=== PATIENT | female | born 1975 | race Caucasian/White ===

== ENCOUNTER 2016-04-05 13:42 | Emergency (ER) | payer OTHER ==
[2016-04-05] MEDS ORDERED: Lidocaine 1% 30 ML SDV INJECT ONE (13:54)
[2016-04-05] MEDS ORDERED: Sodium Chloride 0.9% 10 ML Syringe FLUSH PRN (13:56)
[2016-04-05] MEDS ORDERED: Diphtheria/Tetanus Toxoids,Adult (Td) 0.5 ML Syringe IM ONE (13:57)
[2016-04-05] MEDS ORDERED: Diphtheria,Pertussis(Acell),Tetanus Vaccine 0.5 ML Syringe IM ONE (14:06)
[2016-04-05] MEDS ORDERED: ceFAZolin 1 GM Vial IVPUSH ONE (14:07)
[2016-04-05 14:49] VITALS: BP 146/94
--- NOTE | 2016-04-07 12:38 | ER ---
Date of Service: 04/05/2016 SUBJECTIVE: Lara presents to the emergency room with complaints of avulsion to the left index finger. The patient was using an industrial press to bend sheet metal when she caught her finger between the piece of sheet metal and the base of the press. She sustained an avulsion and loss of tissue to her left index finger, measuring approximately 3 cm in length x 1 cm in width, involving the lateral aspect in the pad of the finger and also sustained a small laceration to the dorsum of the index finger. She states that her tetanus is likely not up to date. She states that she has normal range of motion to the finger. PAST MEDICAL HISTORY: 1. Alcoholism. 2. Hypertension. 3. Dyslipidemia. MEDICATIONS: None. ALLERGIES: To codeine, morphine, sulfamethoxazole, and trimethoprim. REVIEW OF SYSTEMS: Denies any numbness or tingling in the distal portion of the extremity. Denies any injury other than that was isolated to the right index finger. PHYSICAL EXAMINATION: General: This is a 40-year-old female patient, who is in no acute distress. Vital Signs: Blood pressure is 146/94, pulse rate is 101, temperature is 36.2, respiratory rate is 20. Skin: Warm, pink, and dry. Musculoskeletal: The patient has an avulsion with tissue loss to her right index finger, measuring approximately 3 cm in length x 1 cm in width. There is a large open area with surrounding redundant tissue. No evidence of involvement of the flexor extensor tendon. The patient has normal range of motion to the finger, albeit with increased discomfort. Neurovascular, circulation, sensation, motor function are all within normal limits in the distal portion of the extremity. EMERGENCY ROOM COURSE: The finger was irrigated with approximately 500 mL of normal saline mixed with chlorhexidine. The patient's hand was prepped and draped in the usual sterile fashion. A total of 2 mattress sutures were used to close the deepest portions of the laceration at the most proximal portion of the finger and a total of 3 interrupted 4-0 nylon sutures were used to close the remainder of the laceration and a total of 2 sutures was used to close the laceration to the dorsum of the finger. Again, there was a significant amount of missing tissue. The area was thoroughly debrided and redundant tissue and irrigated during the suturing procedure. A digital block using 1% lidocaine was placed at the base of the finger prior to repair. The patient tolerated the procedure well. She remained stable in my care in the emergency room. ASSESSMENT: A 3 x 1 cm complex avulsion/laceration to the lateral aspect of the right index finger and 1.5 cm laceration to the dorsum of the right index finger. PLAN: To note, I did speak with Dr. Murphy from [facility] regarding this injury prior to closure. He advised that this is how he would repair the injury and stated that a large amount of the injury would have to heal via secondary intention. IV was started. The patient's tetanus was updated. She was given 2 g of Ancef IV as well. Wet dressing was applied to the finger. We will have her follow up on in the ER for dressing change. All questions were answered. MWK: 04/07/2016 07:14:38 MODL: 04/07/2016 12:26:28 /[id number]
== END 2016-04-05 15:40 | disposition home or self-care (01) ==
LOC: VM.ED 13:42
DX: S61.310A Laceration without foreign body of right index finger with damage to nail, initial encounter (principal); I10 Essential (primary) hypertension; E78.5 Hyperlipidemia, unspecified; Z88.5 Allergy status to narcotic agent; Z88.2 Allergy status to sulfonamides; W23.0XXA Caught, crushed, jammed, or pinched between moving objects, initial encounter
CPT/HCPCS: 12001; 12042; 73140; 90715; 96374; 99283; J0690

== ENCOUNTER 2017-05-25 14:30 | Emergency (ER) | payer SELFPAY ==
[2017-05-25 15:18] VITALS: BP 155/94
[2017-05-25 17:19] LABS: CHLORIDE,CL 103 mmol/L (98-107); SODIUM,NA 137 mmol/L (136-145)
[2017-05-25] MEDS ORDERED: Take Home: Amoxicillin/Clavulanate K 875-125 MG Tab, 2 Tab Pack PO ONE (17:38)
--- NOTE | 2017-05-25 18:52 | EDM.PDOC ---
ED HPI GENERAL MEDICAL PROBLEM - General Chief Complaint: ENT Problem Stated Complaint: TOOTH Time Seen by Provider: 05/25/17 15:17 Source of Information: Reports: Patient History Limitations: Reports: No Limitations - History of Present Illness INITIAL COMMENTS - FREE TEXT/NARRATIVE: PtAdria presented to ER with numerous complaints. Her initial complaint was that of R sided facial swelling. She states that she has a dental abscess that has been present for several weeks. She also complains of abdominal bloating, decreased appetite, hemetemesis, hematochezia and possibly melena that started 2-3 weeks ago as well. She is concerned because she feels her abdomen has gotten larger. She is able to hold down foods, and is passing gas. She states that she had a loose stool earlier today. States that she has been chilled but is not checking her temp. States that she also feels lightheaded and fatigued. States that she doesn't feel much like eating. Denies any history of scleral icterus or jaundice. She has a history of severe alcoholism. She previously had been a patient of mine in the clinic several years ago, at which time she had stopped drinking, but has started again. Location: Reports: Face, Abdomen, Generalized Quality: Reports: Ache Severity: Moderate Improves with: Reports: Rest Worsens with: Reports: Movement Right Face Pain Score (Numeric/FACES): 9 - Related Data Allergies Allergy/AdvReac Type Severity Reaction Status Date / Time codeine Allergy Other Verified 05/25/17 15:16 morphine Allergy Cannot Verified 05/25/17 15:16 Remember sulfamethoxazole Allergy Cannot Verified 05/25/17 15:16 [From Bactrim] Remember trimethoprim [From Bactrim] Allergy Cannot Verified 05/25/17 15:16 Remember Home Meds: Home Meds . [No Known Home Meds] 04/05/16 [History] Past Medical History Cardiovascular History: Reports: Hypertension - Past Surgical History Female Surgical History: Reports: Hysterectomy, Tubal Ligation Musculoskeletal Surgical History: Reports: Carpal Tunnel Social & Family History - Tobacco Use Smoking Status *Q: Current Every Day Smoker Years of Tobacco use: 30 Packs/Tins Daily: 1.5 - Caffeine Use Caffeine Use: Reports: None - Alcohol Use Days Per Week of Alcohol Use: 4 Number of Drinks Per Day: 4 Total Drinks Per Week: 16 - Recreational Drug Use Recreational Drug Use: No Drug Use in Last 12 Months: No ED ROS GENERAL - Review of Systems Review Of Systems: See Below Constitutional: Reports: Chills, Fatigue, Decreased Appetite, Weight Gain. Denies: Diaphoresis HEENT: Reports: Dental Pain (R sided dental pain and facial swelling) Respiratory: Reports: No Symptoms Cardiovascular: Reports: No Symptoms Endocrine: Reports: Fatigue GI/Abdominal: Reports: Abdominal Pain, Anorexia, Black Stool, Diarrhea, Decreased Appetite, Distension, Flatus, Hematemesis, Melena, Vomiting : Reports: No Symptoms Musculoskeletal: Reports: No Symptoms Skin: Reports: No Symptoms. Denies: Cyanosis, Jaundice, Bruising, Change in Color Neurological: Reports: No Symptoms Psychiatric: Reports: No Symptoms Hematologic/Lymphatic: Reports: No Symptoms Immunologic: Reports: No Symptoms ED EXAM, GENERAL - Physical Exam Exam: See Below Exam Limited By: No Limitations General Appearance: Alert, WD/WN, No Apparent Distress Eye Exam: Bilateral Eye: EOMI, Normal Fundi, Normal Inspection, PERRL Ears: Normal External Exam, Normal Canal, Hearing Grossly Normal, Normal TMs Ear Exam: Bilateral Ear: Auricle Normal, Canal Normal, TM normal Nose: Normal Inspection, Normal Mucosa, No Blood Throat/Mouth: Normal Inspection, Normal Lips, Normal Teeth, Normal Gums, Normal Oropharynx, Normal Voice, No Airway Compromise Head: Atraumatic, Normocephalic Neck: Normal Inspection, Supple, Non-Tender, Full Range of Motion Respiratory/Chest: No Respiratory Distress, No Accessory Muscle Use, Chest Non- Tender, Decreased Breath Sounds Cardiovascular: Normal Peripheral Pulses, Regular Rate, Rhythm, No Edema, No Gallop, No JVD, No Murmur, No Rub Peripheral Pulses: 4+: Radial (L), Radial (R) GI/Abdominal: Normal Bowel Sounds, Soft, Non-Tender, No Organomegaly, No Abnormal Bruit, No Mass, Pelvis Stable, Other (abdomen obese, no splenomegaly. BS are normoactive.). No: Hepatomegaly, Splenomegaly (Female) Exam: Deferred Rectal (Female) Exam: Deferred Back Exam: Normal Inspection, Full Range of Motion, NT Extremities: Normal Inspection, Normal Range of Motion, Non-Tender, Normal Capillary Refill, No Pedal Edema Neurological: Alert, Oriented, CN II-XII Intact, Normal Cognition, Normal Gait, Normal Reflexes, No Motor/Sensory Deficits Psychiatric: Normal Affect, Normal Mood Skin Exam: Warm, Dry, Intact, Normal Color, No Rash Lymphatic: No Adenopathy Course - Vital Signs Last Recorded V/S: Last Vital Signs Temp 37.3 C 05/25/17 15:17 Pulse 87 05/25/17 15:17 Resp 14 05/25/17 15:17 BP 155/94 H 05/25/17 15:17 Pulse Ox 97 05/25/17 15:17 - Orders/Labs/Meds Orders: Active Orders 24 hr Category Date Time Status Abdomen Series w Chest 1V [CR] Stat Exams 05/25/17 16:27 Taken Labs: Laboratory Tests 05/25/17 05/25/17 05/25/17 Range/Units 16:50 16:53 16:53 WBC 8.6 (4.0-10.0) x10^3/uL RBC 4.44 (4.00-5.50) x10^6/uL Hgb 14.5 (12.0-16.0) g/dL Hct 41.1 (33.0-47.0) % MCV 92.6 D (78.0-93.0) fL MCH 32.7 H (26.0-32.0) pg MCHC 35.3 (32.0-36.0) g/dL RDW Coeff of Jose Cruz 12.5 (10.0-15.0) % Plt Count 206 D (130-400) x10^3/uL Neut % (Auto) 67.7 (50.0-80.0) % Lymph % (Auto) 21.0 L (25.0-50.0) % Gooding % (Auto) 9.0 (2.0-11.0) % Eos % (Auto) 2.0 (0.0-4.0) % Baso % (Auto) 0.3 (0.2-1.2) % PT 9.8 (9.8-11.8) SEC INR 0.9 L (2.0-3.5) Sodium (136-145) mmol/L Potassium (3.5-5.1) mmol/L Chloride (98-107) mmol/L Carbon Dioxide (21-32) mmol/L Anion Gap (10-20) mmol/L BUN (7-18) mg/dL Creatinine (0.55-1.02) mg/dL Est Cr Clr Drug Dosing mL/min Estimated GFR (MDRD) Glucose (74-106) mg/dL Calcium (8.5-10.1) mg/dL Corrected Calcium (8.5-10.1) mg/dL Total Bilirubin (0.2-1.0) mg/dL AST (15-37) U/L ALT (14-59) U/L Alkaline Phosphatase (46-116) U/L C-Reactive Protein (<=0.9) mg/dL Total Protein (6.4-8.2) g/dL Albumin (3.4-5.0) g/dL Globulin Albumin/Globulin Ratio Amylase (25-115) U/L Urine Color Yellow (YELLOW) Urine Appearance Slightly cloudy H (CLEAR) Urine pH 5.5 (5.0-8.0) Ur Specific [place] 1.020 Urine Protein Negative (NEGATIVE) mg/dL Urine Glucose (UA) Negative (NEGATIVE) mg/dL Urine Ketones Negative (NEGATIVE) mg/dL Urine Occult Blood Small H (NEGATIVE) Urine Nitrite Negative (NEGATIVE) Urine Bilirubin Negative (NEGATIVE) Urine Urobilinogen 0.2 (0.2) EU/dL Ur Leukocyte Esterase Negative (NEGATIVE) Urine RBC 0-5 (NOT SEEN) /HPF Urine WBC 0-5 (NOT SEEN) /HPF Ur Squamous Epith Cells Moderate H (NEGATIVE) /HPF Amorphous Sediment Few Urine Bacteria Few H (NEGATIVE) /HPF Granular Casts Occasional H (NEGATIVE) /HPF Urine Mucus Moderate H (NEGATIVE) /LPF 05/25/17 Range/Units 16:53 WBC (4.0-10.0) x10^3/uL RBC (4.00-5.50) x10^6/uL Hgb (12.0-16.0) g/dL Hct (33.0-47.0) % MCV (78.0-93.0) fL MCH (26.0-32.0) pg MCHC (32.0-36.0) g/dL RDW Coeff of Jose Cruz (10.0-15.0) % Plt Count (130-400) x10^3/uL Neut % (Auto) (50.0-80.0) % Lymph % (Auto) (25.0-50.0) % Gooding % (Auto) (2.0-11.0) % Eos % (Auto) (0.0-4.0) % Baso % (Auto) (0.2-1.2) % PT (9.8-11.8) SEC INR (2.0-3.5) Sodium 137 (136-145) mmol/L Potassium 3.4 L (3.5-5.1) mmol/L Chloride 103 (98-107) mmol/L Carbon Dioxide 24 (21-32) mmol/L Anion Gap 13.4 (10-20) mmol/L BUN 9 (7-18) mg/dL Creatinine 0.6 (0.55-1.02) mg/dL Est Cr Clr Drug Dosing 107.63 mL/min Estimated GFR (MDRD) > 60 Glucose 93 (74-106) mg/dL Calcium 9.2 (8.5-10.1) mg/dL Corrected Calcium 9.28 (8.5-10.1) mg/dL Total Bilirubin 0.3 (0.2-1.0) mg/dL AST 14 L (15-37) U/L ALT 24 (14-59) U/L Alkaline Phosphatase 80 (46-116) U/L C-Reactive Protein 4.0 H (<=0.9) mg/dL Total Protein 7.8 (6.4-8.2) g/dL Albumin 3.9 (3.4-5.0) g/dL Globulin 3.9 Albumin/Globulin Ratio 1.00 Amylase 33 (25-115) U/L Urine Color (YELLOW) Urine Appearance (CLEAR) Urine pH (5.0-8.0) Ur Specific [place] Urine Protein (NEGATIVE) mg/dL Urine Glucose (UA) (NEGATIVE) mg/dL Urine Ketones (NEGATIVE) mg/dL Urine Occult Blood (NEGATIVE) Urine Nitrite (NEGATIVE) Urine Bilirubin (NEGATIVE) Urine Urobilinogen (0.2) EU/dL Ur Leukocyte Esterase (NEGATIVE) Urine RBC (NOT SEEN) /HPF Urine WBC (NOT SEEN) /HPF Ur Squamous Epith Cells (NEGATIVE) /HPF Amorphous Sediment Urine Bacteria (NEGATIVE) /HPF Granular Casts (NEGATIVE) /HPF Urine Mucus (NEGATIVE) /LPF Meds: Medications Discontinued Medications Generic Name Dose Route Start Last Admin Trade Name Freq PRN Reason Stop Dose Admin Amoxicillin/Clavulanate Potassium 1 packet 05/25/17 17:38 05/25/17 17:46 Take Home: Amox/Clavulanate 875-12, 2 Tab Pac PO 05/25/17 17:39 1 packet ONETIME ONE Administration Departure - Departure Time of Disposition: 17:50 Disposition: Home, Self-Care 01 Clinical Impression: Dental caries, Dental abscess - Discharge Information Instructions: Dental Abscess, [id number], Acute Bronchitis, Adult, Easy-to- Read Referrals: Brenda Murray [employer]AD [Primary Care Provider] - Forms: ED Department Discharge Additional Instructions: Home to rest. Augmentin 875mg twice daily for 10 days. Establish care and follow-up in clinic in 10-14 days, sooner if not gradually improving. Contact [facility] to set up appt. with dentist. Also, [facility] in [place] may be able to help as well. - My Orders Last 24 Hours: My Active Orders 05/25/17 16:27 Abdomen Series w Chest 1V [CR] Stat - Assessment/Plan Last 24 Hours: My Active Orders 05/25/17 16:27 Abdomen Series w Chest 1V [CR] Stat Assessment:: dental abscess History of GI bleeding, acute on chronic. Weight gain Relapse of alcoholism, contributing to #2 and #3
== END 2017-05-25 17:50 | disposition home or self-care (01) ==
LOC: VM.ED 14:30
DX: K04.7 Periapical abscess without sinus (principal); K02.9 Dental caries, unspecified; I10 Essential (primary) hypertension; F17.210 Nicotine dependence, cigarettes, uncomplicated; Z88.5 Allergy status to narcotic agent; Z88.2 Allergy status to sulfonamides; Z88.1 Allergy status to other antibiotic agents
CPT/HCPCS: 36415; 74022; 80053; 81001; 82150; 85025; 85610; 86140; 99284; A9270

== ENCOUNTER 2017-06-23 06:29 | Emergency (ER) | payer SELFPAY ==
[2017-06-23 06:32] VITALS: BP 168/92
[2017-06-23] MEDS ORDERED: Amoxicillin 875 MG Tab PO ONE (07:23)
--- NOTE | 2017-06-23 07:32 | EDM.PDOC ---
ED HPI GENERAL MEDICAL PROBLEM - General Chief Complaint: ENT Problem Stated Complaint: SORE THROAT Time Seen by Provider: 06/23/17 06:50 Source of Information: Reports: Patient History Limitations: Reports: No Limitations - History of Present Illness INITIAL COMMENTS - FREE TEXT/NARRATIVE: Sore throat, fever, and difficulty swallowing for 5 days. Also has been experiencing cough. No N/V/D. Onset Date: 06/22/17 Throat Pain Score (Numeric/FACES): 9 - Related Data Allergies Allergy/AdvReac Type Severity Reaction Status Date / Time codeine Allergy Other Verified 06/23/17 06:30 morphine Allergy Cannot Verified 06/23/17 06:30 Remember sulfamethoxazole Allergy Cannot Verified 06/23/17 06:30 [From Bactrim] Remember trimethoprim [From Bactrim] Allergy Cannot Verified 06/23/17 06:30 Remember Home Meds: Home Meds . [No Known Home Meds] 04/05/16 [History] Past Medical History Cardiovascular History: Reports: Hypertension - Past Surgical History Female Surgical History: Reports: Hysterectomy, Tubal Ligation Musculoskeletal Surgical History: Reports: Carpal Tunnel Social & Family History - Tobacco Use Smoking Status *Q: Current Every Day Smoker Years of Tobacco use: 30 Packs/Tins Daily: 1 - Caffeine Use Caffeine Use: Reports: None ED ROS GENERAL - Review of Systems Review Of Systems: See Below Constitutional: Reports: No Symptoms HEENT: Reports: Throat Pain, Throat Swelling Respiratory: Reports: No Symptoms Cardiovascular: Reports: No Symptoms Endocrine: Reports: No Symptoms GI/Abdominal: Reports: No Symptoms Musculoskeletal: Reports: No Symptoms Skin: Reports: No Symptoms Neurological: Reports: No Symptoms Psychiatric: Reports: No Symptoms ED EXAM, GENERAL - Physical Exam Exam: See Below Exam Limited By: No Limitations General Appearance: Alert, WD/WN, No Apparent Distress Ears: Normal External Exam, Normal Canal, Hearing Grossly Normal, Normal TMs Nose: Normal Inspection, Normal Mucosa, No Blood Throat/Mouth: Normal Lips, Normal Teeth, Normal Gums, No Airway Compromise, Inflammation Head: Atraumatic, Normocephalic Neck: Normal Inspection, Supple, Non-Tender, Full Range of Motion Respiratory/Chest: No Respiratory Distress, Lungs Clear, Normal Breath Sounds, No Accessory Muscle Use, Chest Non-Tender Cardiovascular: Normal Peripheral Pulses, Regular Rate, Rhythm, No Edema, No Gallop, No JVD, No Murmur, No Rub Course - Vital Signs Last Recorded V/S: Last Vital Signs Temp 35.9 C 06/23/17 06:30 Pulse 107 H 06/23/17 06:30 Resp 18 06/23/17 06:30 BP 168/92 H 06/23/17 06:30 Pulse Ox 98 06/23/17 06:30 - Orders/Labs/Meds Meds: Medications Discontinued Medications Generic Name Dose Route Start Last Admin Trade Name Susan PRN Reason Stop Dose Admin Amoxicillin 875 mg 06/23/17 07:23 Amoxil PO 06/23/17 07:24 ONETIME ONE Departure - Departure Time of Disposition: 07:30 Disposition: Home, Self-Care 01 Condition: Good Clinical Impression: Strep throat - Discharge Information Instructions: Strep Throat Referrals: PCP,Unobkarma [Primary Care Provider] - Forms: ED Department Discharge Additional Instructions: amoxicillin 875mg twice daily for 10 days Off work until 24 hours after your last fever. Drink plenty of fluids. Tylenol and ibuprofen for discomfort.
== END 2017-06-23 07:35 | disposition home or self-care (01) ==
LOC: VM.ED 06:29
DX: J02.0 Streptococcal pharyngitis (principal); I10 Essential (primary) hypertension; F17.210 Nicotine dependence, cigarettes, uncomplicated; Z88.5 Allergy status to narcotic agent; Z88.2 Allergy status to sulfonamides; Z88.1 Allergy status to other antibiotic agents
CPT/HCPCS: 87880; 99283; A9270

== ENCOUNTER 2020-07-13 09:24 | Day surgery (SDC) | payer MEDICAID ==
[2020-07-13] MEDS: Lactated Ringers 1,000 ML IV SCH (09:41)
[2020-07-13] MEDS ORDERED: fentaNYL 100 MCG/2 ML SDV ONE (10:31)
[2020-07-13] MEDS ORDERED: Propofol 200 MG/20 ML SDV ONE ×2 (10:31→10:42)
[2020-07-13 11:05] VITALS: BP 160/90; PULSE 70
--- NOTE | 2020-07-13 14:40 | OR ---
PREOPERATIVE DIAGNOSIS: History of nausea, vomiting, and abdominal pain. POSTOPERATIVE DIAGNOSIS: History of nausea, vomiting, and abdominal pain. PROCEDURE PERFORMED: Esophagogastroduodenoscopy with antral biopsy for Helicobacter pylori. COMPLICATIONS: None. SPECIMENS: Biopsies taken for H. pylori. ESTIMATED BLOOD LOSS: 5 mL. PROCEDURE IN DETAIL: This was done in the endoscopy suite. Sedation was given per Anesthesia. Endoscope was inserted into the pharynx, across the esophagus into the stomach, through the pylorus into the first and second portion of duodenum. First and second portion of the duodenum were normal. Scope was slowly withdrawn. There was a fair amount of gastritis present within the body of the stomach. Several biopsies were taken for H pylori. The scope was retroflexed. No hiatal hernia present. The remainder of the exam was normal. FINAL DIAGNOSIS: Gastritis, biopsies pending for Helicobacter pylori. BKD: 07/13/2020 12:26:16 MODL: 07/13/2020 13:36:03 /[id number]
== END 2020-07-13 11:50 | disposition home or self-care (01) ==
LOC: VM.SDS 09:24
PROVIDERS: ATTEND Surgery
DX: K29.70 Gastritis, unspecified, without bleeding (principal); E78.5 Hyperlipidemia, unspecified; I10 Essential (primary) hypertension; F17.210 Nicotine dependence, cigarettes, uncomplicated; K21.00 Gastro-esophageal reflux disease with esophagitis, without bleeding; Z88.8 Allergy status to other drugs, medicaments and biological substances; Z88.5 Allergy status to narcotic agent; Z88.1 Allergy status to other antibiotic agents; Z79.899 Other long term (current) drug therapy
CPT/HCPCS: 00731; J2704; J3010; J7120

== ENCOUNTER 2020-08-10 08:21 | Emergency (ER) | payer MEDICAID ==
[2020-08-10 08:34] VITALS: PULSE 96
[2020-08-10] MEDS ORDERED: Ketorolac 30 MG/ML SDV IM ONE (08:49)
[2020-08-10] MEDS ORDERED: Take Home: Acetaminophen/HYDROcodone 325-5 MG, 5 Tab Pack PO ONE (08:51)
[2020-08-10] MEDS ORDERED: Take Home: Cyclobenzaprine 10 MG Tab, 4 Tab Pack PO ONE (08:51)
--- NOTE | 2020-08-10 08:58 | EDM.PDOC ---
ED HPI GENERAL MEDICAL PROBLEM - General Chief Complaint: Neck Problem Stated Complaint: RT SIDE NECK PAIN AND STIFF Time Seen by Provider: 08/10/20 08:45 Source of Information: Reports: Patient History Limitations: Reports: No Limitations - History of Present Illness INITIAL COMMENTS - FREE TEXT/NARRATIVE: Patient was putting her hair into a ponytail this morning and had sudden onset of right neck pain. She denies any injury. Does have some chronic problems with left arm carpal tunnel issues, but no chronic neck pain. no recent trauma or neck manipulation. no numbness or tingling to the right arm. no weakness. Did not try anything prior to arrival Onset: Today, Sudden Location: Reports: Neck Quality: Reports: Sharp Severity: Moderate Improves with: Reports: None Worsens with: Reports: Movement Associated Symptoms: Reports: No Other Symptoms Right Neck Pain Score (Numeric/FACES): 10 - Related Data Allergies Allergy/AdvReac Type Severity Reaction Status Date / Time codeine Allergy Itching Verified 08/10/20 08:36 morphine Allergy Itching Verified 08/10/20 08:36 sulfamethoxazole Allergy Itching Verified 08/10/20 08:36 [From Bactrim] trimethoprim [From Bactrim] Allergy Itching Verified 08/10/20 08:36 varenicline [From Chantix] Allergy Other Verified 08/10/20 08:36 Home Meds: Home Meds Albuterol Sulfate [Albuterol Sulfate HFA] 2 puff INH Q4H PRN 06/29/20 [History] Cyclobenzaprine [Flexeril] 10 mg PO TID PRN 06/29/20 [History] Pantoprazole Sodium [Protonix] 40 mg PO DAILY 06/29/20 [History] Promethazine [Phenergan] 25 mg PO QID PRN 06/29/20 [History] Sucralfate [Carafate] 1 gm PO QID PRN 06/29/20 [History] ondansetron HCL [Zofran] 4 mg PO Q8H PRN 06/29/20 [History] lisinopriL [Lisinopril] 20 mg PO DAILY 07/13/20 [History] Hydrocodone/Acetaminophen [Hydrocodone-Acetamin 5-325 mg] 1 each PO Q6HR #10 tablet 08/10/20 [Rx] diazePAM [Valium] 5 mg PO TID PRN #12 tablet 08/10/20 [Rx] Past Medical History Cardiovascular History: Reports: High Cholesterol, Hypertension Gastrointestinal History: Reports: GERD, Other (See Below) Other Gastrointestinal History: esophagitis 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: Reports: Endometriosis Psychiatric History: Reports: Depression Endocrine/Metabolic History: Reports: Other (See Below) Other Endocrine/Metabolic History: IFG - Past Surgical History Female Surgical History: Reports: Hysterectomy, Tubal Ligation Musculoskeletal Surgical History: Reports: Carpal Tunnel Social & Family History - Caffeine Use Caffeine Use: Reports: None ED ROS GENERAL - Review of Systems Review Of Systems: See Below Constitutional: Reports: No Symptoms HEENT: Reports: No Symptoms Respiratory: Reports: No Symptoms Cardiovascular: Reports: No Symptoms Endocrine: Reports: No Symptoms GI/Abdominal: Reports: No Symptoms : Reports: No Symptoms Musculoskeletal: Reports: Neck Pain Skin: Reports: No Symptoms Neurological: Reports: No Symptoms Psychiatric: Reports: No Symptoms Hematologic/Lymphatic: Reports: No Symptoms ED EXAM, UPPER BACK/NECK PAIN - Physical Exam Exam: See Below Exam Limited By: No Limitations General Appearance: Alert, Moderate Distress Eye Exam: Bilateral Eye: EOMI, Normal Inspection, PERRL Ears Exam: Normal External Exam, Normal Canal Nose Exam: Normal Inspection, Normal Mucousa Throat/Mouth Exam: Normal Inspection, Normal Lips, Normal Voice Head Exam: Atraumatic Neck Exam: Limited Range of Motion, Muscle Spasm, Paraspinous Muscle Tender (right side significant spasm), Stiff Neck. No: Spinous Processes Tender, Tender Midline (trapezius spasm from origin to insertion. no vertebral tenderness, limited motion, especially to right, trachea midline, no JVD) Cardiovascular/Respiratory: Tachycardia Extremities: Other (normal strength and rom of the upper extremities) Course - Vital Signs Last Recorded V/S: Last Vital Signs Temp 36.7 C 08/10/20 08:28 Pulse 96 08/10/20 08:28 Resp 20 08/10/20 08:28 BP 219/134 H 08/10/20 08:28 Pulse Ox 100 08/10/20 08:28 - Orders/Labs/Meds Meds: Medications Discontinued Medications Generic Name Dose Route Start Last Admin Trade Name Freq PRN Reason Stop Dose Admin Hydrocodone Bitart/Acetaminophen 1 packet 08/10/20 08:51 08/10/20 09:02 Take Home: Acetaminophen/Hydrocodone 325-5 Mg, 5 Tab Pack PO 08/10/20 08:52 1 packet ONETIME ONE Administration Cyclobenzaprine HCl 1 packet 08/10/20 08:51 08/10/20 09:02 Take Home: Cyclobenzaprine 10 Mg Tab, 4 Tab Pack PO 08/10/20 08:52 1 packet ONETIME ONE Administration Diazepam 5 mg 08/10/20 08:49 08/10/20 08:59 Diazepam 10 Mg/2 Ml Syringe IM 08/10/20 08:50 5 mg ONETIME ONE Administration Ketorolac Tromethamine 30 mg 08/10/20 08:49 08/10/20 08:59 Ketorolac 30 Mg/Ml Sdv IM 08/10/20 08:50 30 mg ONETIME ONE Administration - Re-Assessments/Exams Free Text/Narrative Re-Assessment/Exam: 08/10/20 09:26 By exam, patient has torticollis. Will give toradol and valium here. SEnd with cyclobeneprine and hydrocodone to go packs. scripts for pain medication and valium and off work x two days. follow up pcp. heat, stretching massage. Departure - Departure Time of Disposition: 08:51 Disposition: Home, Self-Care 01 Condition: Fair Clinical Impression: Torticollis, acquired - Discharge Information *PRESCRIPTION DRUG MONITORING PROGRAM REVIEWED*: Not Applicable *COPY OF PRESCRIPTION DRUG MONITORING REPORT IN PATIENT JAMEEL: Not Applicable Prescriptions: Hydrocodone/Acetaminophen [Hydrocodone-Acetamin 5-325 mg] 1 each PO Q6HR #10 tablet diazePAM [Valium] 5 mg PO TID PRN #12 tablet PRN Reason: Muscle Spasm - Painful Instructions: Acute Torticollis, Adult Forms: ED Department Discharge, ED Return to Work/School Form Additional Instructions: Heat, stretching massage and motion are important. TAke motrin 600 mg every 6 hours for several days with food. You are given cyclobenzaprine, as a muscle relaxant, take one every 8 hours as needed for spasm. Fill the valium tomorrow when the pharmacy is open and use this in place of the cyclobenzaprine. You are given hydrocodone as pain medication, take one every 6 hours as needed for pain not controlled by motrin. fill rest of prescription as needed. You are given a note for off work for 2 days. Follow up with physical therapy and your physician as needed. Sepsis Event Note (ED) - Evaluation Sepsis Screening Result: No Definite Risk - Focused Exam Vital Signs: Vital Signs Temp Pulse Resp BP Pulse Ox 08/10/20 08:28 36.7 C 96 20 219/134 H 100
[2020-08-10 09:52] VITALS: BP 171/111
== END 2020-08-10 09:20 | disposition home or self-care (01) ==
LOC: VM.ED 08:21
DX: M43.6 Torticollis (principal); E78.00 Pure hypercholesterolemia, unspecified; I10 Essential (primary) hypertension; K21.9 Gastro-esophageal reflux disease without esophagitis; Z88.1 Allergy status to other antibiotic agents; Z88.8 Allergy status to other drugs, medicaments and biological substances; Z88.5 Allergy status to narcotic agent; Z88.6 Allergy status to analgesic agent
CPT/HCPCS: 96372; 99283; A9270-GY; J1885; J3360

== ENCOUNTER 2021-05-29 08:02 | Emergency (ER) | payer MEDICAID ==
[2021-05-29] MEDS ORDERED: Ketorolac 30 MG/ML SDV IM ONE (08:42)
[2021-05-29] MEDS ORDERED: Cyclobenzaprine 10 MG Tab PO ONE (08:42)
[2021-05-29] MEDS ORDERED: Diazepam 5 MG Tab PO ONE (09:49)
[2021-05-29] MEDS ORDERED: fentaNYL 50 MCG/ML SDV IM ONE (09:49)
[2021-05-29 10:29] LABS: CHLORIDE,CL 104 mmol/L (98-107); SODIUM,NA 138 mmol/L (136-145)
[2021-05-29 10:30] LABS: ANION GAP 12.4 mmol/L (5-15)
[2021-05-29 10:31] VITALS: BP 146/84; PULSE 61
== END 2021-05-29 11:35 | disposition home or self-care (01) ==
LOC: VM.ED 08:02
DX: R07.89 Other chest pain (principal); E78.00 Pure hypercholesterolemia, unspecified; I10 Essential (primary) hypertension; K21.9 Gastro-esophageal reflux disease without esophagitis; Z88.5 Allergy status to narcotic agent; Z88.8 Allergy status to other drugs, medicaments and biological substances; Z79.899 Other long term (current) drug therapy
CPT/HCPCS: 36415; 80053; 83690; 83735; 84484; 85025; 85379; 93010; 96372; 99284; A9270-GY; J1885; J3010

== ENCOUNTER 2023-06-29 21:46 | Observation (INO) | payer SELFPAY ==
[2023-06-29] MEDS: HYDROmorphone 1 MG/ML Syringe IVPUSH ONE (22:09)
[2023-06-29 22:10] LABS: BASOPHILS PERCENT AUTO 0.2 % (0.2-1.2); EOSINOPHILS PERCENT AUTO 0.2 % (0.0-4.0); HEMATOCRIT 40.1 % (33.0-47.0); HEMOGLOBIN 14.5 g/dL (12.0-16.0); IMMATURE GRAN ABSOLUTE AUTO 0.02 x10^3/uL (0.00-0.07); MEAN CORPUSCULAR HEMOGLOBIN 31.8 pg (26.0-32.0); MEAN CORPUSCULAR HGB CONC 36.2 g/dL (32.0-36.0); MEAN CORPUSCULAR VOLUME 87.9 fL (78.0-93.0); MONOCYTES ABSOLUTE AUTO 0.3 x10^3/uL (0.0-0.8); MONOCYTES PERCENT AUTO 2.5 % (2.0-11.0); NEUTROPHILS ABSOLUTE AUTO 10.2 x10^3/uL (1.8-7.7); NEUTROPHILS PERCENT AUTO 80.9 % (50.0-80.0); PLATELET COUNT,PLT 246 x10^3/uL (130-400); RED BLOOD CELL COUNT 4.56 x10^6/uL (4.00-5.50); WHITE BLOOD CELL COUNT,WBC 12.6 x10^3/uL (4.0-10.0)
[2023-06-29] MEDS: Ondansetron 4 MG/2 ML SDV IVPUSH PRN (22:10)
[2023-06-29 22:22] LABS: CALCIUM 9.3 mg/dL (8.5-10.1); CREATININE 0.7 mg/dL (0.55-1.02); EST CRCL DRUG DOSING (CG) 85.79 mL/min
[2023-06-29 22:29] LABS: POTASSIUM,K 3.8 mmol/L (3.5-5.1)
[2023-06-29 22:30] LABS: ANION GAP 19.8 mmol/L (5-15)
[2023-06-29] MEDS: Haloperidol Lactate 5 MG/ML SDV IV ONE (23:11)
[2023-06-29] MEDS: diphenhydrAMINE 50 MG/ML SDV IVPUSH ONE (23:11)
[2023-06-29] MEDS: Acetaminophen 500 MG Tab PO ONE (23:12)
[2023-06-29] MEDS: Lidocaine 4% 1 each Patch TOP ONE (23:12)
[2023-06-29] MEDS: Iopamidol 612 MG/ML 100 ML Bottle IVPUSH ONE (23:28)
[2023-06-30] MEDS ORDERED: Acetaminophen 500 MG Tab PO PRN (00:27)
[2023-06-30] MEDS ORDERED: diphenhydrAMINE 50 MG/ML SDV IVPUSH PRN (00:34)
[2023-06-30] MEDS ORDERED: Haloperidol Lactate 5 MG/ML SDV IV PRN (00:34)
[2023-06-30] MEDS ORDERED: LORazepam 0.5 MG Tab PO PRN (01:40)
[2023-06-30] MEDS: Ketorolac 15 MG/ML SDV IVPUSH SCH (01:58)
[2023-06-30 06:51] LABS: BASOPHILS PERCENT AUTO 0.2 % (0.2-1.2); EOSINOPHILS ABSOLUTE AUTO 0.4 x10^3/uL (0.0-0.5); EOSINOPHILS PERCENT AUTO 2.8 % (0.0-4.0); HEMATOCRIT 38.7 % (33.0-47.0); HEMOGLOBIN 13.7 g/dL (12.0-16.0); IMMATURE GRAN ABSOLUTE AUTO 0.04 x10^3/uL (0.00-0.07); LYMPHOCYTES ABSOLUTE AUTO 4.4 x10^3/uL (1.0-4.8); MEAN CORPUSCULAR HEMOGLOBIN 31.4 pg (26.0-32.0); MEAN CORPUSCULAR HGB CONC 35.4 g/dL (32.0-36.0); MEAN CORPUSCULAR VOLUME 88.6 fL (78.0-93.0); MONOCYTES ABSOLUTE AUTO 0.9 x10^3/uL (0.0-0.8); MONOCYTES PERCENT AUTO 5.7 % (2.0-11.0); NEUTROPHILS ABSOLUTE AUTO 9.8 x10^3/uL (1.8-7.7); PLATELET COUNT,PLT 242 x10^3/uL (130-400); RED BLOOD CELL COUNT 4.37 x10^6/uL (4.00-5.50); WHITE BLOOD CELL COUNT,WBC 15.5 x10^3/uL (4.0-10.0)
[2023-06-30 07:15] LABS: LACTIC ACID 0.6 mmol/L (0.4-2.0)
[2023-06-30] MEDS: Losartan 50 MG Tab PO SCH (08:34)
[2023-06-30] MEDS: Allopurinol 300 MG Tab PO SCH (08:35)
[2023-06-30] MEDS: Metoprolol Succinate 25 MG Tab.ER PO SCH (08:35)
[2023-06-30] MEDS: Methocarbamol 500 MG Tab PO SCH (08:35)
[2023-06-30] MEDS: FLUoxetine 20 MG Cap PO SCH (08:35)
[2023-06-30 15:17] VITALS: BP 139/89; PULSE 67
== END 2023-06-30 13:30 | disposition home or self-care (01) ==
LOC: VM.ED 21:46 → VM.MS 06-30 00:24
PROVIDERS: ADMIT Physician Assistant Medical; ATTEND Physician Assistant Medical
DX: S32.018A Other fracture of first lumbar vertebra, initial encounter for closed fracture (principal); S32.028A Other fracture of second lumbar vertebra, initial encounter for closed fracture; S32.038A Other fracture of third lumbar vertebra, initial encounter for closed fracture; S22.39XA Fracture of one rib, unspecified side, initial encounter for closed fracture; I10 Essential (primary) hypertension; K21.9 Gastro-esophageal reflux disease without esophagitis; F32.A Depression, unspecified; Z79.899 Other long term (current) drug therapy; Z88.5 Allergy status to narcotic agent; Z88.2 Allergy status to sulfonamides; Z88.8 Allergy status to other drugs, medicaments and biological substances; W10.9XXA Fall (on) (from) unspecified stairs and steps, initial encounter; Y93.01 Activity, walking, marching and hiking
CPT/HCPCS: 36415; 71260; 74177; 80048; 83605; 85025; 96374; 96375; 99285; A9270; J1170; J1200; J1630; J1885; J2405; J3360; Q9967; 96376; G0378

== ENCOUNTER 2024-10-29 20:18 | Emergency (ER) | payer SELFPAY ==
[2024-10-29 20:34] LABS: BASOPHILS ABSOLUTE AUTO 0.0 x10^3/uL (0.0-0.2); BASOPHILS PERCENT AUTO 0.4 % (0.2-1.2); EOSINOPHILS ABSOLUTE AUTO 0.3 x10^3/uL (0.0-0.5); EOSINOPHILS PERCENT AUTO 3.1 % (0.0-4.0); IMMATURE GRAN ABSOLUTE AUTO 0.01 x10^3/uL (0.00-0.07); IMMATURE GRAN PERCENT AUTO 0.10 % (0.00-0.43); LYMPHOCYTES ABSOLUTE AUTO 4.0 x10^3/uL (1.0-4.8); LYMPHOCYTES PERCENT AUTO 43.3 % (25.0-50.0); MONOCYTES ABSOLUTE AUTO 0.5 x10^3/uL (0.0-0.8); MONOCYTES PERCENT AUTO 5.5 % (2.0-11.0); NEUTROPHILS ABSOLUTE AUTO 4.4 x10^3/uL (1.8-7.7); NEUTROPHILS PERCENT AUTO 47.6 % (50.0-80.0); PLATELET COUNT,PLT 240 x10^3/uL (130-400); RED BLOOD CELL COUNT 4.44 x10^6/uL (4.00-5.50); WHITE BLOOD CELL COUNT,WBC 9.3 x10^3/uL (4.0-10.0)
[2024-10-29 20:55] LABS: A/G RATIO 1.29; ALANINE AMINOTRANSFERASE,ALT 36 U/L (14-59); ASPARTATE AMNIOTRANSFERASE,AST 31 U/L (15-37); BILIRUBIN TOTAL 0.3 mg/dL (0.2-1.0); BLOOD UREA NITROGEN,BUN 8 mg/dL (7-18); CARBON DIOXIDE,CO2 23 mmol/L (21-32); CHLORIDE,CL 102 mmol/L (98-107); CREATININE 0.7 mg/dL (0.55-1.02); ETHANOL BLOOD MEDICAL 250 mg/dL (0-3); GLUCOSE RANDOM 103 mg/dL (70-99); POTASSIUM,K 3.1 mmol/L (3.5-5.1); PROTEIN TOTAL,TP 7.1 g/dL (6.4-8.2); SODIUM,NA 139 mmol/L (136-145)
[2024-10-29 20:56] LABS: ESTIMATED GFR 107 mL/min (>=60)
== END 2024-10-29 20:45 | disposition left against medical advice (07) ==
LOC: VM.ED 20:18
DX: Z53.21 Procedure and treatment not carried out due to patient leaving prior to being seen by health care provider (principal)
CPT/HCPCS: 36415; 80053; 80307; 85025